=== PATIENT | male | born 1955 | race African-American/Black ===

== ENCOUNTER 2017-03-02 20:01 | Emergency (ER) | payer MEDICAID ==
[~2017-03-02] VITALS: Ht 177.8 cm; Wt 95.0 kg
[~2017-03-02 20:01] MED LIST: ACET-2178 PO; AMA4 PO; AMLO10TA80 PO; ASPI-1160 PO; ATOR20TA PO; CALC667C PO; CLON0.2T12 PO; CRAN425C6; FERR325T23 PO; LEVO250T2 PO
[2017-03-02] MEDS ORDERED: SODIUM CHLORIDE 0.9% 1,000 ML IV ONE (21:03)
[2017-03-02] MEDS ORDERED: ONDANSETRON HCL 4MG/2ML VIAL IV STA (21:03)
[2017-03-02 21:38] LABS: BASOPHILS % 0.5 % (0.0-2.0); HEMATOCRIT. 31.3 % (42.0-52.0); HEMOGLOBIN. 10.3 g/dL (14.0-18.0); LYMPHOCYTES % 21.5 % (20.0-50.0); MEAN CORPUSCULAR HEMOGLOBIN 29.2 pg (28.0-32.0); MEAN CORPUSCULAR VOLUME 89.1 fL (80.0-94.0); MEAN PLATELET VOLUME 8.3 fl (7.4-10.4); MONOCYTES % 8.2 % (2.0-8.0); NEUTROPHILS % 67.8 % (40.0-76.0); PLATELET 228 x1000/uL (130-400); RED BLOOD CELL COUNT 3.51 mill/uL (4.7-6.1); RED CELL DISTRIBUTION WIDTH 14.6 % (11.6-14.6)
[2017-03-02 21:42] LABS: CHLORIDE 106 mEq/L (98-107)
[2017-03-02 21:44] LABS: PROTHROMBIN TIME 10.3 sec (9.4-11.6)
[2017-03-02 21:45] LABS: CARBON DIOXIDE 25 mEq/L (21-32)
[2017-03-03 00:20] VITALS: BP 159/78
== END 2017-03-03 00:40 | disposition home or self-care (01) ==
LOC: ER 20:01
DX: R11.2 Nausea with vomiting, unspecified (principal); Z79.82 Long term (current) use of aspirin; E11.9 Type 2 diabetes mellitus without complications; I10 Essential (primary) hypertension; E78.00 Pure hypercholesterolemia, unspecified
CPT/HCPCS: 36415; 80053; 83690; 85025; 85610; 86850; 86900; 86901; 96361; 96374; 99285; J2405; J7030; Z7610

== ENCOUNTER 2017-10-03 21:15 | Emergency (ER) | payer MEDICAID ==
[~2017-10-03] VITALS: Ht 190.5 cm; Wt 107.0 kg
[~2017-10-03 21:15] MED LIST changes: +BISA-81 RC; -CRAN425C6; +CRAN425C6 PO; +DOCU-150 PO; +EPOE10005 IJ; +FURO20TA4 PO; +GUAI-735 PO; +INSU100I28 SQ; +LEVO75TA7 PO; +LISI2.5T47 PO; +OMEP20CA10 PO
[2017-10-03] MEDS ORDERED: PANTOPRAZOLE SODIUM 40 MG/VIAL IV STA (22:52)
[2017-10-03] MEDS ORDERED: SODIUM CHLORIDE 0.9% 1,000 ML IV ONE (22:52)
[2017-10-03 23:16] LABS: BASOPHILS % 0.1 % (0.0-2.0); EOSINOPHILS % 0.1 % (0.0-5.0); HEMATOCRIT. 31.8 % (42.0-52.0); HEMOGLOBIN. 10.9 g/dL (14.0-18.0); LYMPHOCYTES % 13.7 % (20.0-50.0); MEAN CORPUSCULAR VOLUME 93.6 fL (80.0-94.0); MEAN PLATELET VOLUME 7.4 fl (7.4-10.4); MONOCYTES % 7.3 % (2.0-8.0); NEUTROPHILS % 78.8 % (40.0-76.0); PLATELET 297 x1000/uL (130-400)
[2017-10-03 23:23] LABS: CHLORIDE 102 mEq/L (98-107)
[2017-10-03 23:25] LABS: INR 1.1; PROTHROMBIN TIME 11.9 sec (9.4-11.6)
[2017-10-04 06:33] VITALS: BP 148/93
== END 2017-10-04 06:36 | disposition home or self-care (01) ==
LOC: ER 22:14
DX: K21.9 Gastro-esophageal reflux disease without esophagitis (principal); K92.2 Gastrointestinal hemorrhage, unspecified; E11.22 Type 2 diabetes mellitus with diabetic chronic kidney disease; I13.2 Hypertensive heart and chronic kidney disease with heart failure and with stage 5 chronic kidney disease, or end stage renal disease; I50.9 Heart failure, unspecified; N18.6 End stage renal disease; I25.10 Atherosclerotic heart disease of native coronary artery without angina pectoris; F32.9 Major depressive disorder, single episode, unspecified; Z88.8 Allergy status to other drugs, medicaments and biological substances; Z79.82 Long term (current) use of aspirin; Z99.2 Dependence on renal dialysis
CPT/HCPCS: 36415; 71045; 74176; 80053; 83690; 85025; 85610; 86850; 86900; 86901; 96365; 96366; 99285; C9113; J7030; Z7610

== ENCOUNTER → 2017-10-05 | Outpatient (CLI) | payer MEDICAID ==
[~2017-10-05] MED LIST changes: +REGADENOSON 0.4 MG/5 ML IV ONE
== END | disposition home or self-care (01) ==
LOC: NM 09:07
PROVIDERS: ATTEND Internal Medicine Nephrology
DX: R07.9 Chest pain, unspecified (principal); Q21.0 Ventricular septal defect; I13.2 Hypertensive heart and chronic kidney disease with heart failure and with stage 5 chronic kidney disease, or end stage renal disease; E11.22 Type 2 diabetes mellitus with diabetic chronic kidney disease; N18.6 End stage renal disease; I50.9 Heart failure, unspecified; K21.9 Gastro-esophageal reflux disease without esophagitis; Z79.82 Long term (current) use of aspirin; Z79.2 Long term (current) use of antibiotics
CPT/HCPCS: 78452; 93017; A9500; C1893; J2785